=== PATIENT | male | born 1950 | race Caucasian/White ===

== ENCOUNTER → 2016-11-13 | Outpatient (CLI) | payer MEDICARE ==
[2016-11-13 12:53] LABS: Basophils # (A) 0.1 k/uL (0-0.2); Basophils % (A) 1 %; CH 30.8; CHCM 33.6; Eosinophils # (A) 0.2 k/uL (0-0.7); Eosinophils % (A) 2 %; HCT 50.4 % (39.0-53.0); HDW 2.52; HGB 16.7 gm/dL (13.0-17.5); Luc # (Auto) 0.16; Luc % (Auto) 2; Lymphocytes # (A) 2.4 k/uL (1.0-4.8); Lymphocytes % (A) 30 %; MCH 30.6 pg (25.0-35.0); MCHC 33.1 g/dL (31.0-37.0); MCV 92.3 fL (80.0-100.0); Monocytes # (A) 0.5 k/uL (0-1.0); Monocytes % (A) 6 %; Neutrophils # (A) 4.9 k/uL (1.3-7.7); Neutrophils % (A) 60 %; RBC 5.46 m/uL (4.30-5.90); RDW 13.8 % (11.5-15.5); WBC 8.2 k/uL (3.8-10.6); WBC (Perox) 7.91
[2016-11-13 13:14] LABS: ALT 33 U/L (21-72); AST 23 U/L (17-59); Alkaline Phosphatase 81 U/L (38-126); Anion Gap 13 mmol/L; Blood Urea Nitrogen 15 mg/dL (9-20); Calcium 9.6 mg/dL (8.4-10.2); Carbon Dioxide 28 mmol/L (22-30); Chloride 102 mmol/L (98-107); Cholesterol 181 mg/dL (<200); Glucose 98 mg/dL (74-99); HDL Cholesterol 50 mg/dL (40-60); Non-African American GFR(MDRD) >60 (>60 ml/min/1.73 sqM); Potassium 4.4 mmol/L (3.5-5.1); Sodium 143 mmol/L (137-145); Total Bilirubin 0.9 mg/dL (0.2-1.3); Triglycerides 132 mg/dL (<150)
== END | disposition home or self-care (01) ==
LOC: LABWHC1 11:46
PROVIDERS: ATTEND Internal Medicine
DX: Z00.00 Encounter for general adult medical examination without abnormal findings (principal)
CPT/HCPCS: 36415; 80053; 80061; 84439; 84443; 85025; 99212

== ENCOUNTER → 2018-02-23 | Outpatient (CLI) | payer MEDICARE ==
--- NOTE | 2018-02-23 12:38 | US ---
EXAMINATION TYPE: US venous doppler duplex LE LT DATE OF EXAM: 02/23/2018 12:10 PM COMPARISON: NONE CLINICAL HISTORY: R22.42 LOWER LIMB SWELLING. SIDE PERFORMED: Left TECHNIQUE: The lower extremity deep venous system is examined utilizing real time linear array sonog fely with graded compression, doppler sonography and color-flow sonography. VESSELS IMAGED: External Iliac Vein (EIV) Common Femoral Vein Deep Femoral Vein Greater Saphenous Vein * Femoral Vein Popliteal Vein Small Saphenous Vein * Proximal Calf Veins (* superficial vessels) Grayscale, color doppler, spectral doppler imaging performed of the deep veins of the left lower extr emity. There is normal flow, compressibility, vascular waveforms. Left Leg: Negative for DVT IMPRESSION: No sonographic evidence of deep venous arthrosis within the left lower extremity.
== END | disposition home or self-care (01) ==
LOC: RADUSWWP 11:42
PROVIDERS: ATTEND Internal Medicine
DX: R22.42 Localized swelling, mass and lump, left lower limb (principal)

== ENCOUNTER → 2018-03-28 | Outpatient (CLI) | payer MEDICARE ==
--- NOTE | 2018-03-28 10:39 | MR ---
EXAMINATION TYPE: MR knee LT wo con DATE OF EXAM: 03/28/2018 COMPARISON: 03/04/2018 outside radiographs of the left knee. HISTORY: Left knee pain TECHNIQUE: Multiplanar, multisequence imaging of the left knee is performed without IV contrast. FINDINGS: MEDIAL MENISCUS: There is an oblique tear of the posterior horn of the medial meniscus contiguous wit h the inferior articular surface. Additionally there is a radial tear of the body and anterior horn o f the medial meniscus. Bone marrow edema is seen of the posterior tibial plateau deep to the posterio r meniscal tear. LATERAL MENISCUS: Anterior and posterior horns are intact without tear. Although the anterior and pos terior roots appear intact there is an anterior 1.0 x 0.5 cm parameniscal cyst raising suspicion for occult tear. CRUCIATE LIGAMENTS: The anterior and posterior cruciate ligaments are intact. There is mucoid degener ation of the anterior cruciate ligament. COLLATERAL LIGAMENTS: The medial collateral ligament and lateral collateral ligament complex are inta ct and unremarkable. High signal seen superficial to the medial collateral ligament suggesting mild m edial collateral ligament bursitis. EXTENSOR MECHANISM: Visualized quadriceps and patellar tendons are intact. Very minimal increased sig nal seen within the insertional fibers of the quadriceps tendon as well as in both insertional and or iginating fibers of the patellar tendon compatible with low-grade injury. EFFUSION: There is a small suprapatellar joint effusion that appears uncomplicated. POPLITEAL CYST: Very small amount of fluid representing a small popliteal cyst is seen between the m edial head of the gastrocnemius and semimembranosus. TRICOMPARTMENT SPACES: There is mild medial compartment joint space narrowing and small marginal oste ophytes of the medial and lateral femoral condyles as well as of the patella. CARTILAGE: There is signal heterogeneity of the medial compartment cartilage without partial or full- thickness cartilaginous loss. Cartilage of the lateral compartment is maintained. Patellofemoral comp artment cartilage is also maintained. BONE MARROW SIGNAL: Focal bone marrow edema is seen of the medial tibial plateau predominating choir director iorly deep to a longitudinal tear of the posterior horn of the medial meniscus. No fracture is identi fied. Remaining bone marrow signal is unremarkable. OTHER: There is mild nonspecific prepatellar and infrapatellar subcutaneous soft edema. IMPRESSION: 1. Oblique tear of the posterior horn of the medial meniscus with underlying bone marrow edema of the posterior tibial plateau. 2. Radial tear of the body and anterior horn of the medial meniscus. 3. Lateral meniscus appears intact on MRI however there is a parameniscal cyst adjacent to the anteri or horn raising suspicion for occult tear. 4. Mild tricompartmental arthropathy and medial compartment chondrosis. 5. Findings suggesting mild MCL bursitis, low-grade patellar tendon and quadriceps tendon injury with out tear, and mucoid degeneration of the ACL.
== END ==
LOC: RADMRIMAIN 08:45
PROVIDERS: ATTEND Orthopaedic Surgery
DX: S83.242A Other tear of medial meniscus, current injury, left knee, initial encounter (principal); M23.042 Cystic meniscus, anterior horn of lateral meniscus, left knee; M12.862 Other specific arthropathies, not elsewhere classified, left knee

== ENCOUNTER 2018-05-12 10:14 | Day surgery (SDC) | payer MEDICARE ==
[2018-05-06 12:25] VITALS: BMI 29.5
--- NOTE | 2018-05-11 13:42 | HP ---
HISTORY AND PHYSICAL Surgery scheduled for 05/12/2018. Wes Zhao is a 68-year-old patient seen with progressive left knee pain. We discussed treatment options. He elected to proceed with left knee arthroscopy. Consent was obtained. Medical clearance was provided by Dr. Doan. PAST MEDICAL HISTORY: Hypercholesterolemia, hypertension. PAST SURGICAL HISTORY: Tonsillectomy. DAILY MEDICATIONS: 1. Finasteride. 2. Simvastatin. 3. Ibuprofen. ALLERGIES: None. SOCIAL HISTORY: Patient currently smokes cigarettes. PHYSICAL EVALUATION: Physical evaluation of left knee: Range of motion is -2 to 115 degrees. There is a mild effusion present. There is tenderness along the medial joint line. There is tenderness along the lateral joint line. There is positive medial Ronald's. There is a positive lateral Ronald's. There is a mild effusion present. Ligaments stable. Hip rotation without pain. Distal neurovascular exam is intact. Left knee radiographs reveal osteoarthritic changes. Left knee MRI revealed medial and lateral meniscal tears. IMPRESSION: Internal derangement left knee with medial and lateral meniscal tears. PLAN: Left knee arthroscopy with partial meniscectomy and debridement. MMODL / IJN: [id number] /
[~2018-05-12 10:14] MED LIST: DEXAMETHASONE SOD PHOSPHATE 10 MG/ML 1 ML VIAL IV ONE; HYDROmorphone 0.5 MG/0.5 ML SYRINGE IVP PRN; LACTATED RINGERS 1,000 ML IV SCH; LIDOCAINE 1% 20 ML VIAL (10MG/ML) FOR IV START INTRADERMA PRN; ONDANSETRON 4 MG/2 ML VIAL IVP ONE; ceFAZolin IN SWFI 2 GM/20 ML SYRINGE IVP ONE
[2018-05-12] MEDS ORDERED: PROPOFOL 10 MG/ML 20 ML VIAL IV ONE (11:56)
[2018-05-12] MEDS ORDERED: KETOROLAC 30 MG/ML 1 ML VIAL ONE (11:56)
[2018-05-12] MEDS ORDERED: MIDAZOLAM 2 MG/2 ML VIAL ONE (11:56)
[2018-05-12] MEDS ORDERED: SUCCINYLCHOLINE CHLORIDE 100 MG/5 ML SYR IV ONE (11:56)
[2018-05-12] MEDS ORDERED: fentaNYL (PF) 50 MCG/ML 2 ML AMP ONE (11:56)
[2018-05-12] MEDS ORDERED: LIDOCAINE 1% INJ 10MG/ML (20 ML MDV) ONE (11:56)
--- NOTE | 2018-05-12 12:48 | P.OP ---
Date of Procedure: 05/12/18 Preoperative Diagnosis: Internal derangement left knee Postoperative Diagnosis: 1. Tear medial and lateral meniscus left knee 2. Reactive synovitis medial and suprapatellar compartments left knee Procedure(s) Performed: 1. Arthroscopic partial medial and lateral meniscectomy left knee 2. Arthroscopic partial synovectomy medial and suprapatellar compartments left knee Anesthesia: RANDY, local Surgeon: Juvencio Morel Estimated Blood Loss (ml): 6 Pathology: none sent Condition: stable Disposition: PACU Indications for Procedure: 68-year-old patient seen with progressive left knee pain. After having treatment options discussed, he elected to proceed with arthroscopy. Operative Findings: see description of procedure Description of Procedure: Patient was taken to the operative suite. Patient underwent a general anesthetic by the department of anesthesia. Patient was given preoperative antibiotics. The left lower extremity was placed in a well-padded arthroscopic leg chris. The left leg was prepped and draped in the normal sterile orthopedic fashion. A lateral parapatellar and suprapatellar incision was made. Trochars were inserted. Arthroscopy was initiated. Suprapatellar pouch revealed diffuse thick reactive synovitis.. The patellofemoral joint appeared to articulate congruently. There was no significant chondromalacia present. The scope was guided into the medial gutter. No loose bodies or plica were identified. The scope was then guided into the medial compartment. A medial parapatellar incision was made. Trocar inserted followed by probe. I immediately encountered a large bucket-handle medial meniscal tear. I reduced it. It extended all way to the anterior horn. There was thick reactive synovitis along the anterior aspect of the medial compartment. There were mild grade 1 chondromalacia changes with no significant osteochondral tears present. I now performed a partial medial meniscectomy getting down to stable meniscal tissue. I now introduced a motorized shaver and performed a partial synovectomy decompressing the thick reactive synovitis in the medial compartment. The residual meniscus was probed and found to be stable. There was good decompression of the thick reactive synovitis. Scope and probe were then guided into the intercondylar notch. Cruciates were identified, probed and found to be stable. The scope and probe were then guided into lateral compartment. There was a small radial tear mid body lateral meniscus. There was no chondromalacia. There were no loose bodies. There was no synovitis present. I performed a partial lateral meniscectomy down to stable tissue. The residual meniscus was found to be stable. The scope was in guided back into the suprapatellar compartment. I introduced a motorized shaver into the suprapatellar compartment. I debrided some piecemeal fragments of meniscus I encountered. I performed a partial synovectomy decompressing the thick reactive synovitis within the suprapatellar compartment. Shaver was removed. There was good decompression of that reactive synovitis in the suprapatellar compartment. I took one more look on the entire knee, no residual debris. Instruments were now removed from the joint. The joint was infiltrated with .25 % Marcaine. Steri-Strips were applied to the portal sites. Sterile dressings were applied. The patient was placed into a ZACHARY hose. No tourniquet was utilized. The patient was awakened, transferred to a bed and taken to recovery stable satisfactory condition.
[2018-05-12 12:59] VITALS: RESP 16; TEMP 97.3
[2018-05-12 13:46] VITALS: BP 132/84; PULSE 87
[2018-05-12] MEDS ORDERED: traMADol 50 MG TAB PO ONE (13:58)
== END 2018-05-12 14:23 | disposition home or self-care (01) ==
LOC: OR 10:14
PROVIDERS: ATTEND Orthopaedic Surgery
DX: S83.212A Bucket-handle tear of medial meniscus, current injury, left knee, initial encounter (principal); S83.282A Other tear of lateral meniscus, current injury, left knee, initial encounter; X58.XXXA Exposure to other specified factors, initial encounter; M65.862 Other synovitis and tenosynovitis, left lower leg; M25.462 Effusion, left knee; J44.9 Chronic obstructive pulmonary disease, unspecified; K21.9 Gastro-esophageal reflux disease without esophagitis; E78.00 Pure hypercholesterolemia, unspecified; I10 Essential (primary) hypertension; N40.0 Benign prostatic hyperplasia without lower urinary tract symptoms; F17.210 Nicotine dependence, cigarettes, uncomplicated; Z79.51 Long term (current) use of inhaled steroids; Z79.899 Other long term (current) drug therapy; Z79.1 Long term (current) use of non-steroidal anti-inflammatories (NSAID)
CPT/HCPCS: 29880; J2250; J1100; J2405; J2001; J3010; J1885; J0330; J2704; J0690

== ENCOUNTER → 2020-04-22 | Outpatient (CLI) | payer MEDICARE ==
[2020-04-22 11:13] LABS: Basophils # (A) 0.1 k/uL (0-0.2); Basophils % (A) 1 %; Eosinophils # (A) 0.2 k/uL (0-0.7); Eosinophils % (A) 2 %; HGB 16.7 gm/dL (13.0-17.5); Lymphocytes # (A) 2.4 k/uL (1.0-4.8); Lymphocytes % (A) 26 %; MCH 30.5 pg (25.0-35.0); MCHC 32.8 g/dL (31.0-37.0); MCV 93.1 fL (80.0-100.0); Mean Platelet Volume 7.5; Monocytes # (A) 0.5 k/uL (0-1.0); Monocytes % (A) 6 %; Neutrophils % (A) 64 %; Platelet Count 178 k/uL (150-450); RBC 5.48 m/uL (4.30-5.90); RDW 14.2 % (11.5-15.5); WBC 9.4 k/uL (3.8-10.6)
[2020-04-22 17:05] LABS: African American GFR (CKD) 70.6 (60.0-200.0); Albumin 4.6 g/dL (3.80-4.90); Albumin/Globulin Ratio 1.77 (1.60-3.17); Anion Gap 9.2 mmol/L (4.00-12.00); BUN/Creat Ratio 10.83 Ratio (12.00-20.00); Calcium 9.5 mg/dL (8.7-10.3); Carbon Dioxide 22.8 mmol/L (21.6-31.8); Chol/HDL Ratio 4.04; Globulin 2.6 g/dL (1.6-3.3); Non-African American GFR(CKD) 60.9 (60.0-200.0); Potassium 4.4 mmol/L (3.5-5.5); Total Bilirubin 0.7 mg/dL (0.2-1.2); Total Protein 7.2 g/dL (6.2-8.2)
== END | disposition home or self-care (01) ==
LOC: LABWHC1 10:09
PROVIDERS: ATTEND Internal Medicine
DX: Z00.00 Encounter for general adult medical examination without abnormal findings (principal); E78.00 Pure hypercholesterolemia, unspecified
CPT/HCPCS: 36415; 80053; 80061; 84439; 84443; 85025

== ENCOUNTER → 2020-05-03 | Outpatient (CLI) | payer MEDICARE ==
--- NOTE | 2020-05-03 08:10 | CTL ---
EXAMINATION TYPE: CT Low Dose Lung DATE OF EXAM ORDERED: 05/03/2020 COMPARISON: HISTORY: . Low Dose CT Lung Screening CT DLP: 77.[address] CTDI: 2.3 mGy IV CONTRAST USED: None. SCREENING VISIT: First visit COMPARISON: None. TECHNIQUE: Low dose computed tomography scan was performed through the chest at 1 millimeter thick se ctions and reconstructed images in the coronal plane at [address] DIAGNOSTIC QUALITY: Satisfactory FINDINGS: LUNG NODULES: Not presentLeft lung: no nodules identified.Right lung: no nodules identified. LUNGS: COPD: Severity: Moderate scattered emphysematous bulla noted. Fibrosis: Severity:None Lymph nodes: None Other findings: None RIGHT PLEURAL SPACE: Effusion: None Calcification: None Thickening: None Pneumothorax: None LEFT PLEURAL SPACE: Effusion: None Calcification: None Thickening: None Pneumothorax: None HEART: Heart Size: Mildly enlarged Coronary calcification: Mild Pericardial effusion: None OTHER FINDINGS: Upper abdomen: No significant abnormality Bony thorax: Degenerative changes Supraclavicular region: No significant abnormalityOther: No significant abnormalityI IMPRESSION: Emphysematous changes. No concerning pulmonary nodules or masses. FOLLOW UP CT CHEST RECOMMENDATION: Follow-up screening in one year. Smoking cessation advised. CT LUNG RAD: Category 1 negative
== END | disposition home or self-care (01) ==
LOC: RADCTMAIN 07:19
PROVIDERS: ATTEND Internal Medicine
DX: Z12.2 Encounter for screening for malignant neoplasm of respiratory organs (principal); J43.9 Emphysema, unspecified; Z87.891 Personal history of nicotine dependence

== ENCOUNTER → 2021-05-28 | Outpatient (CLI) | payer MEDICARE ==
[2021-05-28 14:53] LABS: Basophils % (A) 1.1 %; Eosinophils % (A) 1.1 %; HCT 47.1 % (39.6-50.0); HGB 15.6 g/dL (13.0-17.0); Lymphocytes # (A) 2.43 X 10*3/uL (0.90-5.00); MCH 30.6 pg (27.0-32.0); MCHC 33.1 g/dL (32.0-37.0); MCV 92.4 fL (80.0-97.0); Mean Platelet Volume 10.7 fL (9.5-12.2); Monocytes # (A) 0.77 X 10*3/uL (0.20-1.00); Monocytes % (A) 8.2 %; Neutrophils # (A) 5.93 X 10*3/uL (1.80-7.70); Neutrophils % (A) 63.3 %; Platelet Count 182 X 10*3/uL (140-440); RDW 15.3 % (11.5-14.5); WBC 9.36 X 10*3/uL (4.50-10.00)
[2021-05-28 22:10] LABS: African American GFR (CKD) 77.9 (60.0-200.0); Albumin 4.7 g/dL (3.80-4.90); Albumin/Globulin Ratio 1.62 (1.60-3.17); Anion Gap 11.3 mmol/L (4.00-12.00); BUN/Creat Ratio 12.73 Ratio (12.00-20.00); Calcium 9.6 mg/dL (8.7-10.3); Carbon Dioxide 22.7 mmol/L (21.6-31.8); Chol/HDL Ratio 3.73; Globulin 2.9 g/dL (1.6-3.3); LDL Cholesterol,Calculated 93.6 mg/dL (0.0-131.0); Non-African American GFR(CKD) 67.2 (60.0-200.0); Potassium 4.3 mmol/L (3.5-5.5); Total Bilirubin 0.8 mg/dL (0.3-1.2); Total Protein 7.6 g/dL (6.2-8.2); VLDL Calculation 26.4 mg/dL (5.00-40.00)
[2021-05-28 22:21] LABS: T4, Free (Free Thyroxine) 1.1 ng/dL (0.80-1.80)
== END | disposition home or self-care (01) ==
LOC: LABWHC1 10:22
PROVIDERS: ATTEND Internal Medicine
DX: Z00.00 Encounter for general adult medical examination without abnormal findings (principal); E78.5 Hyperlipidemia, unspecified
CPT/HCPCS: 36415; 80053; 80061; 84439; 84443; 85025

== ENCOUNTER 2022-04-13 09:29 | Emergency (ER) | payer MEDICARE ==
[2022-04-13 09:47] VITALS: BP 147/90; PULSE 92; RESP 16; TEMP 97.9
[2022-04-13 10:32] LABS: Basophils # (A) 0.1 k/uL (0-0.2); Basophils % (A) 1 %; Eosinophils # (A) 0.4 k/uL (0-0.7); Eosinophils % (A) 4 %; HCT 48.9 % (39.0-53.0); HGB 16.4 gm/dL (13.0-17.5); Lymphocytes # (A) 1.6 k/uL (1.0-4.8); Lymphocytes % (A) 17 %; MCH 31.9 pg (25.0-35.0); MCHC 33.5 g/dL (31.0-37.0); MCV 95.2 fL (80.0-100.0); Mean Platelet Volume 7.7; Monocytes # (A) 0.5 k/uL (0-1.0); Monocytes % (A) 6 %; Neutrophils # (A) 6.9 k/uL (1.3-7.7); Neutrophils % (A) 71 %; Platelet Count 177 k/uL (150-450); RBC 5.13 m/uL (4.30-5.90); RDW 14.5 % (11.5-15.5); WBC 9.6 k/uL (3.8-10.6)
[2022-04-13 10:42] LABS: Albumin 4.6 g/dL (3.5-5.0); Calcium 9.2 mg/dL (8.4-10.2); Potassium 4.1 mmol/L (3.5-5.1); Total Bilirubin 0.9 mg/dL (0.2-1.3)
[2022-04-13] MEDS ORDERED: cefTRIAXone IN SWFI 1,000 MG/10 ML SYRINGE IVP STA (10:49)
--- NOTE | 2022-04-13 10:54 | ED ---
General Adult HPI - General Chief complaint: Skin/Abscess/Foreign Body Stated complaint: Lt leg infection from tick Time Seen by Provider: 04/13/22 09:56 Source: patient, RN notes reviewed Mode of arrival: ambulatory Limitations: no limitations - History of Present Illness Initial comments: 72-year-old male presents emergency Department chief complaint left leg infection. Patient states this started last few days. Patient statesa scab then he realized it was a tick in his left leg. Patient states that he's had increasing redness mild discomfort no fevers or chills no night sweats no other associated complaints. - Related Data Home Medications Medication Instructions Recorded Confirmed Albuterol Inhaler [Ventolin Hfa 1 - 2 puff INHALATION RT-Q6H PRN 05/06/18 05/12/18 Inhaler] Doxazosin Mesylate 8 mg PO HS 05/06/18 05/06/18 Finasteride [Proscar] 5 mg PO HS 05/06/18 05/06/18 Simvastatin [Zocor] 40 mg PO HS 05/06/18 05/06/18 Acetaminophen [Tylenol] 2 tab PO Q4-6H PRN 05/12/18 05/12/18 Ibuprofen 2 tab PO Q6HR PRN 05/12/18 05/12/18 Previous Rx's Medication Instructions Recorded traMADol HCl [Ultram] 50 mg PO Q6H PRN #15 tab 05/12/18 Doxycycline [Vibramycin] 100 mg PO BID #20 capsule 04/13/22 Allergies Allergy/AdvReac Type Severity Reaction Status Date / Time No Known Allergies Allergy Verified 04/13/22 09:44 Review of Systems ROS Statement: Those systems with pertinent positive or pertinent negative responses have been documented in the HPI. ROS Other: All systems not noted in ROS Statement are negative. Past Medical History Past Medical History: COPD, Hyperlipidemia, Prostate Disorder History of Any Multi-Drug Resistant Organisms: None Reported Past Surgical History: Tonsillectomy Past Anesthesia/Blood Transfusion Reactions: No Reported Reaction Past Psychological History: No Psychological Hx Reported Smoking Status: Current every day smoker Past Alcohol Use History: None Reported Past Drug Use History: None Reported - Past Family History Mother Family Medical History: Coronary Artery Disease (CAD) Father Family Medical History: Cancer Additional Family Medical History / Comment(s): LUNG General Exam Limitations: no limitations General appearance: alert, in no apparent distress Head exam: Present: atraumatic, normocephalic, normal inspection Respiratory exam: Present: normal lung sounds bilaterally. Absent: respiratory distress, wheezes, rales, rhonchi, stridor Cardiovascular Exam: Present: regular rate, normal rhythm, normal heart sounds. Absent: systolic murmur, diastolic murmur, rubs, gallop, clicks Extremities exam: Present: other (Left anterior lower leg there is some erythema with increased warmth, minimal tenderness central blisters and mild ecchymotic area noted) Course Vital Signs 04/13/22 09:44 Temperature 97.9 F Pulse Rate 92 Respiratory 16 Rate Blood Pressure 147/90 O2 Sat by Pulse 97 Oximetry Medical Decision Making - Medical Decision Making Patient's labwork is unremarkable. Patient does have left leg cellulitis. Patient was placed on doxycycline as this was believed to be started from a tick. Patient will have close follow-up we discussed strict return parameters. - Lab Data Result diagrams: 04/13/22 10:23 04/13/22 10:23 Lab Results 04/13/22 04/13/22 04/13/22 Range/Units 10:23 10:23 10:23 WBC 9.6 (3.8-10.6) k/uL RBC 5.13 (4.30-5.90) m/uL Hgb 16.4 (13.0-17.5) gm/dL Hct 48.9 (39.0-53.0) % MCV 95.2 (80.0-100.0) fL MCH 31.9 (25.0-35.0) pg MCHC 33.5 (31.0-37.0) g/dL RDW 14.5 (11.5-15.5) % Plt Count 177 (150-450) k/uL MPV 7.7 Neutrophils % 71 % Lymphocytes % 17 % Monocytes % 6 % Eosinophils % 4 % Basophils % 1 % Neutrophils # 6.9 (1.3-7.7) k/uL Lymphocytes # 1.6 (1.0-4.8) k/uL Monocytes # 0.5 (0-1.0) k/uL Eosinophils # 0.4 (0-0.7) k/uL Basophils # 0.1 (0-0.2) k/uL Sodium 138 (137-145) mmol/L Potassium 4.1 (3.5-5.1) mmol/L Chloride 105 (98-107) mmol/L Carbon Dioxide 23 (22-30) mmol/L Anion Gap 10 mmol/L BUN 13 (9-20) mg/dL Creatinine 1.06 (0.66-1.25) mg/dL Est GFR (CKD-EPI)AfAm 81 (>60 ml/min/1.73 sqM) Est GFR (CKD-EPI)NonAf 70 (>60 ml/min/1.73 sqM) Glucose 110 H (74-99) mg/dL Plasma Lactic Acid Angel 1.2 (0.7-2.0) mmol/L Calcium 9.2 (8.4-10.2) mg/dL Total Bilirubin 0.9 (0.2-1.3) mg/dL AST 21 (17-59) U/L ALT 17 (4-49) U/L Alkaline Phosphatase 95 (38-126) U/L Total Protein 8.0 (6.3-8.2) g/dL Albumin 4.6 (3.5-5.0) g/dL Disposition Clinical Impression: Cellulitis of left leg, Tick bite Disposition: HOME SELF-CARE Condition: Stable Instructions (If sedation given, give patient instructions): Cellulitis (ED) Additional Instructions: Please return to the Emergency Department if symptoms worsen or any other concerns. Prescriptions: Doxycycline [Vibramycin] 100 mg PO BID #20 capsule Is patient prescribed a controlled substance at d/c from ED?: No Referrals: All Doan MD [Primary Care Provider] - 1-2 days Time of Disposition: 10:54
== END 2022-04-13 11:10 | disposition home or self-care (01) ==
LOC: EC 09:29
DX: L03.116 Cellulitis of left lower limb (principal); T14.8XXA Other injury of unspecified body region, initial encounter; J44.9 Chronic obstructive pulmonary disease, unspecified; E78.5 Hyperlipidemia, unspecified; F17.200 Nicotine dependence, unspecified, uncomplicated
CPT/HCPCS: 36415; 80053; 83605; 85025; 87040; 99283; 96374; J0696

== ENCOUNTER → 2022-08-27 | Outpatient (CLI) | payer MEDICARE ==
--- NOTE | 2022-08-27 10:38 | CTL ---
EXAMINATION TYPE: CT Low Dose Lung DATE OF EXAM ORDERED: 08/27/2022 HISTORY: . Lung cancer screening CT DLP: 85.[address] CTDI: 2.3 mGy Automated exposure control for dose reduction was used. SCREENING VISIT: COMPARISON: 05/03/2020 TECHNIQUE: Low dose computed tomography scan was performed through the chest at 1 mm thick sections a nd reconstructed images in multiple planes at 1 mm and [address] DIAGNOSTIC QUALITY: Satisfactory FINDINGS: Diffuse emphysematous changes are seen. There is biapical pleural thickening greater on the right. No evidence of consolidative pneumonia, pleural effusion or pneumothorax. Aorta normal caliber with atherosclerotic changes. Heart is mildly enlarged and coronary artery calci um dictation. Hypertrophic degenerative changes in the spine. Subsegmental changes involving the lung bases most li beatriz atelectasis. Structures of the upper abdomen demonstrate no acute finding. No sizable pulmonary nodules. IMPRESSION: 1. COPD with no sizable pulmonary nodules. 2. Coronary artery calcifications correlate clinically. CT LUNG RAD AND CT CHEST RECOMMENDATION: Lung-Rad 1 Negative: Continue annual screening with LDCT in 12 months. S Modifier (other clinically significant findings): S
[2022-08-27 14:25] LABS: Basophils # (A) 0.08 X 10*3/uL (0.00-0.10); Basophils % (A) 0.8 %; Eosinophils # (A) 0.23 X 10*3/uL (0.04-0.35); Eosinophils % (A) 2.3 %; HCT 47.7 % (39.6-50.0); HGB 15.9 g/dL (13.0-17.0); Immature Grans, Automated 0.4 %; Lymphocytes # (A) 2.45 X 10*3/uL (0.90-5.00); Lymphocytes % (A) 24.3 %; MCH 30.2 pg (27.0-32.0); MCHC 33.3 g/dL (32.0-37.0); MCV 90.7 fL (80.0-97.0); Mean Platelet Volume 10.9 fL (9.5-12.2); Monocytes % (A) 6.9 %; NRBC Per 100 WBC 0 /100 WBCS (0.0-0.0); Neutrophils % (A) 65.3 %; Platelet Count 190 X 10*3/uL (140-440); RBC 5.26 X 10*6/uL (4.40-5.60)
[2022-08-27 15:26] LABS: ALT 20 U/L (10-49); AST 19 U/L (14-35); African American GFR (CKD) 77.3 (60.0-200.0); Albumin 4.6 g/dL (3.8-4.9); Alkaline Phosphatase 106 U/L (41-126); BUN/Creat Ratio 13.36 Ratio (12.00-20.00); Blood Urea Nitrogen 14.7 mg/dL (9.0-27.0); Calcium 9.4 mg/dL (8.7-10.3); Carbon Dioxide 24.2 mmol/L (20.0-27.5); Chloride 103 mmol/L (96-109); Chol/HDL Ratio 3.93 Ratio; Globulin 3.1 g/dL (1.6-3.3); Glucose 116 mg/dL (70-110); LDL Cholesterol,Calculated 118.3 mg/dL (0.0-131.0); Non-African American GFR(CKD) 66.7 (60.0-200.0); Potassium 4.4 mmol/L (3.5-5.5); Sodium 140 mmol/L (135-145); Total Protein 7.6 g/dL (6.2-8.2); VLDL Calculation 18.12 mg/dL (5.00-40.00)
== END | disposition home or self-care (01) ==
LOC: RADCTMAIN 08:47
PROVIDERS: ATTEND Internal Medicine
DX: Z12.2 Encounter for screening for malignant neoplasm of respiratory organs (principal); I25.10 Atherosclerotic heart disease of native coronary artery without angina pectoris; J44.9 Chronic obstructive pulmonary disease, unspecified; Z87.891 Personal history of nicotine dependence
CPT/HCPCS: 36415; 71271; 80053; 80061; 84439; 84443; 85025; 86618

== ENCOUNTER → 2023-10-27 | Outpatient (CLI) | payer MEDICARE ==
[2023-10-27 15:32] LABS: ALT 20 U/L (10-49); AST 21 U/L (14-35); Albumin 4.7 g/dL (3.8-4.9); Albumin/Globulin Ratio 1.42 Ratio (1.60-3.17); Alkaline Phosphatase 104 U/L (41-126); BUN/Creat Ratio 10.08 Ratio (12.00-20.00); Blood Urea Nitrogen 12.1 mg/dL (9.0-27.0); Carbon Dioxide 25.6 mmol/L (21.6-31.8); Chloride 100 mmol/L (96-109); Chol/HDL Ratio 3.11 Ratio; Globulin 3.3 g/dL (1.6-3.3); Glucose 108 mg/dL (70-110); LDL Cholesterol,Calculated 96.3 mg/dL (0.0-131.0); Potassium 4.7 mmol/L (3.5-5.5); Sodium 139 mmol/L (135-145); T4, Free (Free Thyroxine) 1.21 ng/dL (0.80-1.80); Total Bilirubin 0.7 mg/dL (0.3-1.2)
[2023-10-27 15:53] LABS: Basophils # (A) 0.09 X 10*3/uL (0.00-0.10); Basophils % (A) 0.9 %; Eosinophils # (A) 0.17 X 10*3/uL (0.04-0.35); Eosinophils % (A) 1.7 %; HCT 53.2 % (39.6-50.0); HGB 17.7 g/dL (13.0-17.0); Lymphocytes # (A) 2.62 X 10*3/uL (0.90-5.00); Lymphocytes % (A) 26.3 %; MCH 30.9 pg (27.0-32.0); MCHC 33.3 g/dL (32.0-37.0); MCV 92.8 FL (80.0-97.0); Mean Platelet Volume 10.4 FL (9.5-12.2); Monocytes # (A) 0.67 X 10*3/uL (0.20-1.00); Monocytes % (A) 6.7 %; NRBC Per 100 WBC 0 X 10*3/uL (0.00-0.01); Neutrophils # (A) 6.36 X 10*3/uL (1.80-7.70); Platelet Count 213 X 10*3/uL (140-440); RBC 5.73 X 10*6/uL (4.40-5.60); RDW 15.3 % (11.5-14.5); WBC 9.95 X 10*3/uL (4.50-10.00)
== END | disposition home or self-care (01) ==
LOC: LABWHC1 09:06
PROVIDERS: ATTEND Internal Medicine
DX: I10 Essential (primary) hypertension (principal); E78.5 Hyperlipidemia, unspecified
CPT/HCPCS: 36415; 80053; 80061; 84439; 84443; 85025

== ENCOUNTER → 2023-11-02 | Outpatient (CLI) | payer MEDICARE ==
--- NOTE | 2023-11-02 10:23 | CTL ---
EXAMINATION TYPE: CT Low Dose Lung DATE OF EXAM ORDERED: 11/02/2023 HISTORY: 73-year-old male Z12.2, F17.210. Current smoker with 50 pack-year history Lung cancer screen ing CT DLP: 117.[address] CTDI: 3.0 mGy Automated exposure control for dose reduction was used. SCREENING VISIT: Annual follow-up COMPARISON: 08/27/2022 TECHNIQUE: Low dose computed tomography scan was performed through the chest with coronal and sagitta l reconstructions. CT DIAGNOSTIC QUALITY: Satisfactory FINDINGS: Heart normal size with trace anterior pericardial fluid. LAD and RCA coronary artery calcifications a re present. Minimal atherosclerotic arch calcifications within the tortuous branching anatomy. No thoracic lymphadenopathy by CT size criteria. Moderate to advanced emphysematous change especially in the upper lungs. Some strandy atelectasis at the lung bases. No consolidation or pleural effusion. Mild diffuse bronchial wall thickening in keepi ng with the patient's COPD. No suspicious pulmonary nodules are seen. Visualized upper abdomen shows no gross abnormality. 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 IMPRESSION: 1. LungRADS 1, negative. No suspicious pulmonary nodules. 2. COPD with moderate to advanced emphysema especially in the upper lungs. Recommend smoking cessatio n. CT LUNG RAD AND CT CHEST RECOMMENDATION: Lung-Rad 1 Negative: Continue annual screening with LDCT in 12 months. S Modifier (other clinically significant findings): None
== END | disposition home or self-care (01) ==
LOC: RADCTMAIN 09:26
PROVIDERS: ATTEND Internal Medicine
DX: Z12.2 Encounter for screening for malignant neoplasm of respiratory organs (principal); J44.9 Chronic obstructive pulmonary disease, unspecified; J43.9 Emphysema, unspecified; F17.210 Nicotine dependence, cigarettes, uncomplicated
CPT/HCPCS: 71271